=== PATIENT | male | born 1980 | race Caucasian/White ===

== ENCOUNTER 2019-11-04 10:50 | Emergency (ER) | payer SELFPAY ==
[2019-11-04] MEDS ORDERED: Ketorolac Tromethamine 30 MG/ML VIAL ONE (11:58)
== END 2019-11-04 12:05 | disposition home or self-care (01) ==
LOC: BURERS 10:50
DX: M25.512 Pain in left shoulder (principal); X50.3XXA Overexertion from repetitive movements, initial encounter
CPT/HCPCS: 99283; J1885

== ENCOUNTER 2021-04-12 16:32 | Emergency (ER) | payer SELFPAY ==
[2021-04-12] MEDS ORDERED: cefTRIAXone\\ROCEPHIN 250 MG VIAL ONE (17:04)
[2021-04-12] MEDS ORDERED: Lidocaine 1% PF 5 ML VIAL ONE (17:04)
[2021-04-12] MEDS ORDERED: Azithromycin 250 MG TAB ONE (17:04)
== END 2021-04-12 17:00 | disposition home or self-care (01) ==
LOC: BURERS 16:32
DX: A74.9 Chlamydial infection, unspecified (principal); F17.210 Nicotine dependence, cigarettes, uncomplicated
CPT/HCPCS: 96372; 99283; J0696

== ENCOUNTER 2024-05-01 07:54 | Emergency (ER) | payer BC, SELFPAY ==
[2024-05-01] MEDS ORDERED: Amoxicillin/Potassium Clav 875 MG TAB ONE (08:05)
[2024-05-01] MEDS ORDERED: Acetaminophen 500 MG TAB ONE (08:05)
== END 2024-05-01 08:25 | disposition home or self-care (01) ==
LOC: BURERS 07:54
DX: K02.9 Dental caries, unspecified (principal); F17.210 Nicotine dependence, cigarettes, uncomplicated
CPT/HCPCS: 99282